=== PATIENT | female | born 1990 | race Caucasian/White ===

== ENCOUNTER 2016-07-14 09:14 | Inpatient (IN) | payer OTHER ==
[2016-07-14] MEDS ORDERED: OXYTOCIN IN LR 500 ML IV ONE (09:36)
[2016-07-14] MEDS ORDERED: IV START KIT ONE (09:45)
[2016-07-14] MEDS ORDERED: LACTATED RINGERS 1,000 ML IV SCH (09:45)
[2016-07-14] MEDS ORDERED: OXYTOCIN 10 UNITS/ML VIAL ONE (09:45)
[2016-07-14] MEDS ORDERED: LIDOCAINE 1% (PRES FREE) 30 ML VIAL ONE (09:46)
[2016-07-14] MEDS ORDERED: MINERAL OIL 25 ML BOT ONE (09:46)
[2016-07-14] MEDS ORDERED: LIDOCAINE Viscous 2% 15 ML UDCUP ONE (09:46)
[2016-07-14] MEDS ORDERED: PUMP TUBING ONE (09:46)
[2016-07-14] MEDS ORDERED: PENICILLIN G POTASSIUM 5 MMU in NS 0.9% (MINI-BAG PLUS) 100 ML IV ONE (10:15)
[2016-07-14] MEDS ORDERED: NS 0.9% (MINI-BAG PLUS) 100 ML IV ONE (10:21)
[2016-07-14] MEDS ORDERED: PENICILLIN G POTASSIUM 5 MMU VIAL ONE (10:21)
[2016-07-14 10:41] LABS: HEMATOCRIT 36.6 % (37.0-47.0); HEMOGLOBIN 12.4 gm/l (12.0-16.0); MEAN CELL VOLUME 83.6 fl (81.0-99.0); MEAN CORPUSCULAR HEMOGLOBIN 28.3 pg (27.0-31.0); MEAN CORPUSCULAR HGB CONC 33.9 g/dl (33.0-37.0); RED CELL DISTRIBUTION WIDTH 14.6 % (11.5-14.5)
[2016-07-14 10:46] VITALS: BMI 34.0
--- NOTE | 2016-07-14 13:18 | PDOC36 ---
Provider Note Note: cc: Admission H&P HPI: 26 y.o. year old KEVEN 07/17/2016, by Ultrasound at 39w4d who presents with regular strong contractions for the past several hours. REVIEW OF SYSTEMS GENERAL:~ No fever or headache EYES:~ No double or blurry vision. CARDIOVASCULAR:~ No chest pain. RESPIRATORY:~ No severe shortness of breath or cough. GASTROINTESTINAL:~ No nausea or vomiting or right upper quadrant pain.~ PSYCHIATRIC:~ No anxiety or depression. PROBLEMS Term GBS Positive OB HISTORY #: 1, Current PSH Appendectomy SOC HX Reports that she has never smoked. She has never used smokeless tobacco. She reports that she drinks alcohol, but not during the . She reports that she does not use illicit drugs. ALL No Known Allergies MEDICATIONS ~ Vit-Fe Fumarate-FA ( PO), Take 1 tablet by mouth daily., Disp : , Rfl:~ PHYSICAL EXAMINATION VITAL SIGNS:~ AFVSS Estimated body mass index is 34.37 Total weight gain is 16.329 kg (36 lb) FHT:~ 140s with moderate variability, positive accels, negative decels, category I [place]:~ Contractions every 2-5 min SVE:~ 4/100/-2 GENERAL:~ No distress CARDIOVASCULAR:~ Regular rate and rhythm, no murmur, JVD or pedal edema. RESPIRATORY:~ Clear to auscultation bilaterally, respiratory effort is nonlabored at rest. GASTROINTESTINAL:~ Gravid no fundal tenderness NEUROLOGIC:~ Deep tendon reflexes are 2+ in the knees.~ Cranial nerves II-XII are grossly intact. PSYCHIATRIC:~ Alert and oriented x3, judgement and memory is intact, mood is pleasant. LABS & STUDIES A+ Antibody- Rubella Immune Hep B- HIV- GC/Chlamydia- Trep- Hgb 11.3 GBS positive by urine culture ULTRASOUNDS 10 wk - viability check/quick look by Dr. Charlton. CRL 3.89 cm. 20 wk - anatomy survey grossly normal. Grade I posterior placenta without previa. GUADALUPE subj nl. Male gender. ASSESSMENT 26 y.o. year old KEVEN 07/17/2016, by Ultrasound at 39w4d PLAN Labor: Admit for expectant management. GBS Positive: IV antibiotics during labor. :~ Yes Control: IUD Pediatrics:~ Bridget Da Silva MD [facility]
[2016-07-14] MEDS ORDERED: PENICILLIN G 3 MIL UNIT PREMIX 3 MMU in Premix (D5W) 50 ml 1 EACH IV SCH (14:15)
[2016-07-14] MEDS ORDERED: FENTANYL 100 MCG/2 ML VIAL IV PRN (15:00)
--- NOTE | 2016-07-14 15:48 | PDOC36 ---
Provider Note Note: SUBJECTIVE: Pt having painful contractions, requesting pain meds. OBJECTIVE: VS: AFVSS FHT: Intermittent auscultation, ressuring [place]: Contractions every 2-3 minutes SVE: Complete ASSESSMENT: 26 y.o. year old KEVEN 07/17/2016, by Ultrasound at 39w4d in labor. PLAN Labor: Pt complete, continue to monitor and will allow the baby to labor down and start pushing when the patient feels the urge. No ROM yet. GBS Positive: Pt has received appropriate GBS coverage.
[2016-07-14] MEDS ORDERED: IBUPROFEN 800 MG TABLET PO PRN (17:46)
[2016-07-14] MEDS ORDERED: MAGNESIUM HYDROXIDE 30 ML UDCUP PO PRN (17:46)
[2016-07-14] MEDS ORDERED: BENZOCAINE/MENTHOL 60 APPLIC/BOT TP PRN (17:46)
[2016-07-14] MEDS ORDERED: LANOLIN 50 APPLIC/7G TUBE TP PRN (17:46)
[2016-07-14] MEDS ORDERED: SENNOSIDES 8.6 MG TABLET PO PRN (17:46)
[2016-07-14] MEDS ORDERED: DOCUSATE SODIUM 100 MG CAPSULE PO PRN (17:46)
[2016-07-14] MEDS ORDERED: OXYCODONE HCL 5 MG TABLET PO PRN (17:46)
[2016-07-14] MEDS ORDERED: HYDROCODONE/ACETAMINOPHEN 5/325MG TABLET PO PRN (17:46)
[2016-07-14] MEDS ORDERED: LIDOCAINE 1% (PRES FREE) 30 ML VIAL SUB-Q ONE (18:22)
--- NOTE | 2016-07-14 19:06 | PCMDEL ---
Delivery Note - Delivery Delivery (Date): 07/14/16 Delivery (Time): 16:29 Gender: Male Presentation: Cephalic Position: OA Umbilical Cord: 3 Vessel Delayed Cord Clamping:: > 3 min 1 Minute Total: 8 5 Minute Total: 9 Placenta:: 16:41 EBL:: 150 mL Perineum:: 1st degree Suture:: 3-0 Vicryl on SH Anesthesia/Meds:: Lidocaine Length ROM:: 15 min Comments:: Jackie Terrazas CNM delivered the baby in my sted as I was delivering another baby down the the muhammad.
[2016-07-15 06:52] LABS: HEMATOCRIT 31.6 % (37.0-47.0); HEMOGLOBIN 10.5 gm/l (12.0-16.0)
--- NOTE | 2016-07-15 11:15 | PDOC44 ---
- Subjective Day: 1 Reports Pain Tolerable, Reports , Reports Lochia Light, Reports Tolerating Regular Diet, Denies Nausea - Objective Temp Pulse Resp BP Pulse Ox 98.8 F 81 16 110/59 07/15/16 01:50 07/15/16 01:50 07/15/16 01:50 07/15/16 01:50 Lab Results 07/15/16 06:45 Hgb 10.5 L Hct 31.6 L Current Medications Generic Name Dose Route Start Last Admin Trade Name Freq PRN Reason Stop Dose Admin Acetaminophen/Hydrocodone Bitart 1 - 2 tab 07/14/16 17:46 [place] 5/325 PO Q4H PRN Pain (Moderate) Benzocaine/Menthol 1 applic 07/14/16 17:46 Dermoplast TP PRN PRN Patient Comfort Docusate Sodium 100 mg 07/14/16 17:46 Colace PO DAILY PRN Comfort Emollient Ointment 1 applic 07/14/16 17:46 [id number] TP PRN PRN sore nipples Ibuprofen 800 mg 07/14/16 17:46 Motrin PO Q6H PRN Pain (Mild) Magnesium Hydroxide 30 ml 07/14/16 17:46 Milk Of Magnesia PO BEDTIME PRN Constipation Oxycodone HCl 5 - 10 mg 07/14/16 17:46 Roxicodone PO Q3H PRN Pain (Severe) Senna 17.2 mg 07/14/16 17:46 Senokot PO BEDTIME PRN Comfort Sodium Chloride 10 ml 07/14/16 17:46 Normal Saline 10ml Flush IV PRN PRN IV Flush Sodium Chloride 10 ml 07/15/16 01:00 07/15/16 03:18 Normal Saline 10ml Flush IV Not Given Q8HR YVETTE - Physical Exam General: Afebrile, No Acute Distress Psych/Mental Status: Mood/Affect Appropriate, Bonding Well Neurological: Alert, Oriented x 4 Lungs: Clear to Auscultation Bilaterally Cardiovascular: Regular Rate and Rhythm Breast: Nipples Intact Fundus: Firm, Midline Extremities: Full ROM, No Edema, No Tenderness Skin: Normal Color, Warm, Dry, Intact, No Rash - Problems:Assessment/Plan (1) (normal spontaneous vaginal delivery) Status: AcuteAssessment/Plan: routine PP care Support BF. Anticipate d/c tomorrow Disposition: Stable, Anticipate DC Home Tomorrow
[2016-07-16 10:13] VITALS: BP 103/60
--- NOTE | 2016-07-16 11:06 | PDOC39B ---
Hospital Course: ADMIT DATE: 07/14/16 DISCHARGE DATE: 07/16/16 ADMISSION DIAGNOSES: IUP at term PROCEDURES: HISTORY OF PRESENT ILLNESS: 26 year old G1 T0 L0 at 39 weeks 4 days presenting with [facility] HOSPITAL COURSE: The patient was admitted in active labor. Uncomplicated . Unremarkable PP course. By day of discharge the patient is ambulating, eating, voiding, and passing flatus without difficulty. Pain is controlled and lochia is appropriate. She is . - Physical Exam Vital Signs: Temp Pulse Resp BP Pulse Ox 98.2 F 76 16 103/60 07/16/16 09:45 07/16/16 09:45 07/16/16 09:45 07/16/16 09:45 General: Afebrile, No Acute Distress Psych/Mental Status: Mood/Affect Appropriate, Judgment/Insight Intact, Bonding Well Neurological: Grossly Intact, Alert, Normal Speech HEENT: Atraumatic, Mucous membr. moist/pink Lungs: Clear to Auscultation Bilaterally Cardiovascular: Regular Rate and Rhythm Breast: Soft, Nipples Intact (except one small scab on L and one small blister on R) Fundus: Firm, Midline, Below Umbilicus Extremities: Edema (1+ B to tibial plateau) Skin: Normal Color, Warm, Dry, Intact, No Rash - Discharge Plan Condition: Good Disposition: Home Instruction Forms: Vaginal Discharge Instructions Additional Instructions: May use OTC Tylenol and Ibuprofen as directed for pain and cramping. Prescriptions: Benzocaine/Menthol [DERMOPLAST SPRAY (SHF)] 1 applic TP PRN PRN #1 bot PRN Reason: Patient Comfort Lanolin [LANOLIN 7 G TUBE (SHF)] 1 applic TP PRN PRN #1 tube PRN Reason: Sore Nipples Follow-Up: Deirdre Thakkar PA-C [Physician [employer]] - 07/19/16 (and 6 wk PP exam)
== END 2016-07-16 13:51 | disposition home or self-care (01) | DRG 775 ==
LOC: FBCOUT 09:14 → FBC 09:14 → FBCOUT 09:35
PROVIDERS: ADMIT Family Medicine; ATTEND Family Medicine
PROC: 10E0XZZ Delivery of Products of Conception, External Approach (ICD-10-PCS; principal; 2016-07-14)
PROC: 0HQ9XZZ Repair Perineum Skin, External Approach (ICD-10-PCS; 2016-07-14)
DX: O70.0 First degree perineal laceration during delivery (principal); O99.824 Streptococcus B carrier state complicating childbirth; Z3A.39 39 weeks gestation of pregnancy; Z37.0 Single live birth